=== PATIENT | male | born 1965 | race African-American/Black ===

== ENCOUNTER → 2022-10-04 | Outpatient (CLI) | payer OTHER | LOC: RAD 19:20 | PROVIDERS: ATTEND Family Medicine | DX: R05.9 Cough, unspecified (principal); J40 Bronchitis, not specified as acute or chronic; J32.9 Chronic sinusitis, unspecified; G47.00 Insomnia, unspecified; J30.2 Other seasonal allergic rhinitis ==

== ENCOUNTER 2022-10-05 07:48 | Outpatient (CLI) | payer OTHER ==
[2022-10-05 09:30] LABS: PLATELET COUNT 281 K/uL (142-355)
[2022-10-05 09:44] LABS: POTASSIUM 4.3 mmol/L (3.6-5.2)
== END 2022-10-05 18:59 | disposition home or self-care (01) ==
LOC: LABW 07:48
PROVIDERS: ATTEND Family Medicine
DX: R05.9 Cough, unspecified (principal); J40 Bronchitis, not specified as acute or chronic; J32.9 Chronic sinusitis, unspecified; G47.00 Insomnia, unspecified; J30.2 Other seasonal allergic rhinitis
CPT/HCPCS: 36415; 80053; 80061; 81002; 84439; 84443; 85027